=== PATIENT | female | born 1990 | race Caucasian/White ===

== ENCOUNTER → 2018-01-25 11:48 | Outpatient (CLI) | payer OTHER, SELFPAY ==
[2018-01-25 13:22] LABS: Follicle Stimulating Hormone 13.1 mIU/mL; Luteinizing Hormone 88.5 mIU/mL; Thyroid Stim Hormone (TSH) 0.56 uIU/mL (0.358-3.74)
[2018-01-28 13:08] LABS: HPV Reflexed? NOT INDICATED
== END ==
PROVIDERS: Visit Provider Obstetrics & Gynecology
DX: Z12.4 Encounter for screening for malignant neoplasm of cervix (principal); N92.6 Irregular menstruation, unspecified
CPT/HCPCS: 83001; 83002; 84443; 88175; G0145

== ENCOUNTER → 2019-02-02 10:00 | Outpatient (CLI) | payer OTHER, SELFPAY ==
[2017-09-19 18:30] VITALS: BMI 29.5
[2019-02-04 14:01] LABS: HPV Reflexed? NOT INDICATED
== END ==
PROVIDERS: Visit Provider Obstetrics & Gynecology
DX: Z12.4 Encounter for screening for malignant neoplasm of cervix (principal)
CPT/HCPCS: 88175; G0145

== ENCOUNTER → 2019-04-05 16:39 | Outpatient (CLI) | payer OTHER, SELFPAY ==
[2019-04-05 19:05] LABS: Chlamydia Trachomatis by PCR Negative (Negative); Neisserai gonorrhoeae by PCR Negative (Negative); Probe Check PASS; Sample Adequacy Control PASS; Specimen Processing Control PASS
== END ==
PROVIDERS: Visit Provider Obstetrics & Gynecology
DX: Z34.81 Encounter for supervision of other normal pregnancy, first trimester (principal)
CPT/HCPCS: 87491; 87591

== ENCOUNTER → 2019-04-28 10:37 | Outpatient (CLI) | payer OTHER, SELFPAY ==
[2017-09-19 18:30] VITALS: BMI 29.5
[2019-04-28 12:13] LABS: Color, Urine Yellow (Yellow); Glucose, Dipstick Normal (Normal); Ketone-Dipstick Negative (Negative); Leukocyte Esterase-Dipstick 500 /ul (Negative); Nitrite-Dipstick Negative (Negative); Occult Blood-Urine 25 /ul (Negative); Protein-Dipstick 15 mg/dl (Negative); Specific Gravity, Urine 1.015 (1.002-1.030); Urine Bilirubin Dipstick Negative (Negative); Urine Clarity Sl. Cloudy (Clear); Urine Urobilinogen Normal (Normal)
[2019-04-28 12:25] LABS: Absolute Neutrophil Count 6.9 X10^3/uL (2.0-7.7); Basophil# 0.01 X10^3/uL; Basophil% 0.1 % (0-1); Eosinophil# 0.03 X10^3/uL; Eosinophils% 0.3 % (0-5); Hematocrit 39.9 % (37-47); Hemoglobin 13.7 g/dL (12.0-15.0); Lymphocyte % 14.6 % (19-41); Mean Corp Hgb Conc 34.3 g/dL (32-36); Mean Corpuscular Hgb 31.6 pg (27.0-32.0); Mean Corpuscular Volume 92.1 fL (81-99); Mean Platelet Vol. 12.6 fl (6.2-12.0); Monocyte# 0.59 X10^3/uL; Monocyte% 6.6 % (0-10); NRBC Flagged by Analyzer 0 % (0-5); Neutrophil # 6.93 X10^3/uL (2.7-7.7); Neutrophil % 78.1 % (47-70); Platelet Count 149 K/mm3 (150-450); RBC Distribution Width CV 12.4 % (11.6-14.6); RBC Distribution Width SD 42.2 fl (35.1-43.9); Red Blood Count 4.33 M/mm3 (4.2-5.4); White Blood Count 8.9 K/mm3 (4.4-11.0)
[2019-04-28 12:31] LABS: Amphetamine Urine VISTA NEGATIVE (<1000 ng/mL); Barbiturate Urine VISTA NEGATIVE (< 200 ng/mL); Benzodiazepine Urine VISTA NEGATIVE (< 200 ng/mL); Cocaine Urine VISTA NEGATIVE (< 300 ng/mL); Ecstacy Urine VISTA NEGATIVE (< 500 ng/mL); Methadone Urine VISTA NEGATIVE (< 300 ng/mL); PCP Urine VISTA NEGATIVE (< 25 ng/mL); THC Urine VISTA NEGATIVE (< 50 ng/mL); Vista UDS pH Range 7
[2019-04-28 12:46] LABS: Thyroid Stim Hormone (TSH) 0.69 uIU/mL (0.358-3.74)
[2019-04-28 13:31] LABS: HIV - WCH Non-Reactive (Nonreactive); Hepatitis B Surface Antigen Non-Reactive (Nonreactive); Hepatitis C Antibody Non-Reactive (Nonreactive); Rubella IgG > 500.0 IU/mL
[2019-04-28 13:37] LABS: Prenatal RPR NONREACTIVE (NONREACTIVE)
== END ==
PROVIDERS: Visit Provider Obstetrics & Gynecology
DX: Z34.81 Encounter for supervision of other normal pregnancy, first trimester (principal)
CPT/HCPCS: 36415; 80307; 81002; 84443; 85025; 86703; 86762; 86803; 87340

== ENCOUNTER → 2019-08-04 08:36 | Outpatient (CLI) | payer OTHER, SELFPAY ==
[2019-08-04 10:54] LABS: Hematocrit 35.3 % (37-47); Hemoglobin 11.7 g/dL (12.0-15.0); Mean Corp Hgb Conc 33.1 g/dL (32-36); Mean Corpuscular Hgb 33.1 pg (27.0-32.0); Mean Corpuscular Volume 99.7 fL (81-99); Mean Platelet Vol. 11.7 fl (6.2-12.0); Platelet Count 136 K/mm3 (150-450); RBC Distribution Width CV 13.2 % (11.6-14.6); RBC Distribution Width SD 48.2 fl (35.1-43.9); Red Blood Count 3.54 M/mm3 (4.2-5.4); White Blood Count 10.3 K/mm3 (4.4-11.0)
[2019-08-04 11:06] LABS: Glucose Challenge Gest 1H 50g 139 mg/dL (70-140)
== END ==
PROVIDERS: Visit Provider Obstetrics & Gynecology
DX: Z34.82 Encounter for supervision of other normal pregnancy, second trimester (principal)
CPT/HCPCS: 36415; 82950; 85027

== ENCOUNTER 2019-09-08 10:00 | Outpatient (CLI) | payer OTHER, SELFPAY ==
[2017-09-19 18:30] VITALS: BMI 29.5
[2019-09-08 10:27] VITALS: BMI 33.0
--- NOTE | 2019-09-15 08:39 | OB.TRI.NOTE ---
History of Present Illness Date of Service: 09/08/19 Was patient seen by the physician?: No Reason For Visit: NST Date of Service: 09/08/19 Final RANDELL: 10/29/19 Gestational age: 32 Weeks and 5 Days History of Present Illness: 32-week intrauterine twin who presents for routine nonstress test. Allergies doxycycline Adverse Reaction (Verified 09/08/19 10:29) Nausea/Vom/Diarrhea NST - FHR Rate Baby A NST Reactive:: Yes FHR Category:: Category I - FHR Rate Baby B NST Reactive:: Yes FHR Category:: Category I Impression/Plan 32+ week intrauterine twin for routine scheduled nonstress test. Reactive nonstress noted x2. Continue present care.
== END 2019-09-08 10:45 | disposition home or self-care (01) ==
LOC: WPOUT 10:02 → WP 10:03
PROVIDERS: Referring Provider Obstetrics & Gynecology; Visit Provider Obstetrics & Gynecology
DX: O30.003 Twin pregnancy, unspecified number of placenta and unspecified number of amniotic sacs, third trimester (principal); Z3A.32 32 weeks gestation of pregnancy
CPT/HCPCS: 59025

== ENCOUNTER 2019-09-15 09:55 | Outpatient (CLI) | payer OTHER, SELFPAY ==
[2019-09-15 10:25] VITALS: BMI 33.0
--- NOTE | 2019-09-15 22:47 | OB.TRI.NOTE ---
History of Present Illness Date of Service: 09/15/19 Was patient seen by the physician?: No Reason For Visit: NST Date of Service: 09/15/19 Final RANDELL: 10/29/19 Final RANDELL Source: US <20 weeks Gestational age: 33 Weeks and 5 Days Allergies doxycycline Adverse Reaction (Verified 09/08/19 10:29) Nausea/Vom/Diarrhea Review of Systems Constitutional: Denies: Chills, Fever, Weight Change HEENT: Denies: Head Aches, Sinus Congestion, Sinus Drainage Cardiovascular: Denies: Chest Pain, Palpitations Respiratory: Denies: Cough, Shortness of breath at rest, Sputum production Gastrointestinal: Denies: Abdominal Pain, Nausea, Vomiting Genitourinary: Denies: Dysuria Musculoskeletal: Denies: Joint Pain, Joint Tenderness Skin: Denies: Rash, Wounds Neurological: Denies: Numbness, Tingling, Focal weakness Psychiatric: Denies: Anxiety, Depression, Homicidal Ideations, Suicidal Ideations Hematologic/ Lymphatic: Denies: Easy Bruising, Easy Bleeding Physical Exam General: Alert, Oriented x3, No apparent distress HEENT: Atraumatic, Normocephalic. Negative for: Thyromegaly, Lymphadenopathy Cardiovascular: Regular rate, Regular Rhythm Lungs: Clear to auscultation Abdomen: Bowel Sounds Present, Gravid Neurological: Deep Tendon Reflexes 2+/4 and Symmetrical, Neuro grossly intact AUDIO VISUAL SECRETARY: Normal external genitalia. Negative for: Vulvar lesions NST - FHR Rate Baby A Baseline: 130 Variability:: Moderate Accelerations:: 15 x 15 Decelerations:: None NST Reactive:: Yes FHR Category:: Category I Uterine Activity:: On NST from and one contraction seen with uterine irritability noted - FHR Rate Baby B Baseline: 140 Variability:: Moderate Accelerations:: None Decelerations:: None NST Reactive:: Non-Reactive FHR Category:: Category II Uterine Activity:: On NST from . One contraction noted with uterine irritability. Impression/Plan A: , twin gestation with GA 33w4d Baby A NST reactive with baseline of 130, moderate variability, + accels, - decels. Category I tracing Baby B NST non-reactive with baseline 140, moderate variability, -accels, -decels. Category II tracing P: L&D RN alerted senior mortgage underwriter of NST with baby B non-reactive. Spoke with attending Dr. Child who agrees to D/C patient from to come straight to office for BPP and follow up.
== END 2019-09-15 11:15 | disposition home or self-care (01) ==
LOC: WPOUT 09:59 → WP 10:00
PROVIDERS: Referring Provider Obstetrics & Gynecology; Visit Provider Obstetrics & Gynecology
DX: O30.003 Twin pregnancy, unspecified number of placenta and unspecified number of amniotic sacs, third trimester (principal); Z3A.33 33 weeks gestation of pregnancy
CPT/HCPCS: 59025; 99218; G0378

== ENCOUNTER 2019-09-23 12:22 | Outpatient (CLI) | payer OTHER, SELFPAY ==
[2019-09-23 12:48] VITALS: BMI 33.0
--- NOTE | 2019-10-07 06:45 | OB.TRI.NOTE ---
History of Present Illness Date of Service: 09/23/19 Was patient seen by the physician?: No Reason For Visit: SCHEDULED NST Date of Service: 09/23/19 Final RANDELL: 10/29/19 Final RANDELL Source: US <20 weeks Gestational age: 34 Weeks and 6 Days History of Present Illness: 34+ week intrauterine with twin gestation presents for routine nonstress testing. Allergies doxycycline Adverse Reaction (Verified 10/05/19 02:55) Nausea/Vom/Diarrhea - Pertinent Past Medical History Medical History: Past Medical History (Last Updated 10/05/19 @ 04:38 by Emmie Benjamin MD) Patient denies medical problems Surgical History: Past Surgical History (Last Updated 10/05/19 @ 04:39 by Emmie Benjamin MD) History of placement of ear tubes S/P tonsillectomy and adenoidectomy NST - FHR Rate Baby A NST Reactive:: Yes FHR Category:: Category I - FHR Rate Baby B NST Reactive:: Yes FHR Category:: Category I Impression/Plan 34+ week intrauterine with twin gestation with reactive nonstress test x2. Continue present care.
== END 2019-09-23 14:00 | disposition home or self-care (01) ==
LOC: WPOUT 12:24 → OBT 12:25
PROVIDERS: Family Provider Obstetrics & Gynecology; Visit Provider Obstetrics & Gynecology
DX: O30.003 Twin pregnancy, unspecified number of placenta and unspecified number of amniotic sacs, third trimester (principal); Z3A.34 34 weeks gestation of pregnancy
CPT/HCPCS: 59025

== ENCOUNTER 2019-09-29 14:27 | Outpatient (CLI) | payer OTHER, SELFPAY ==
[2019-09-29 14:55] VITALS: BMI 33.5
--- NOTE | 2019-09-29 14:58 | NURSING ---
pt is here for an NST she has no c/o
--- NOTE | 2019-10-07 06:54 | OB.TRI.NOTE ---
History of Present Illness Date of Service: 09/29/19 Was patient seen by the physician?: No Reason For Visit: NST Date of Service: 09/29/19 Final RANDELL: 10/29/19 Final RANDELL Source: US <20 weeks Gestational age: 35 Weeks and 5 Days History of Present Illness: 35+ week intrauterine presents for routine nonstress test for twin gestation. Allergies doxycycline Adverse Reaction (Verified 10/05/19 02:55) Nausea/Vom/Diarrhea - Pertinent Past Medical History Medical History: Past Medical History (Last Updated 10/05/19 @ 04:38 by Emmie Benjamin MD) Patient denies medical problems Surgical History: Past Surgical History (Last Updated 10/05/19 @ 04:39 by Emmie Benjamin MD) History of placement of ear tubes S/P tonsillectomy and adenoidectomy NST - FHR Rate Baby A NST Reactive:: Yes FHR Category:: Category I - FHR Rate Baby B NST Reactive:: Yes FHR Category:: Category I Impression/Plan 35+ week intrauterine with twin gestation with reactive nonstress test x2. Continue present care.
== END 2019-09-29 15:55 | disposition home or self-care (01) ==
LOC: WPOUT 14:48 → WP 14:50
PROVIDERS: Referring Provider Obstetrics & Gynecology; Visit Provider Obstetrics & Gynecology
DX: O30.003 Twin pregnancy, unspecified number of placenta and unspecified number of amniotic sacs, third trimester (principal); Z3A.35 35 weeks gestation of pregnancy
CPT/HCPCS: 59025

== ENCOUNTER 2019-10-03 16:09 | Outpatient (CLI) | payer OTHER, SELFPAY ==
[2019-10-03 16:19] VITALS: BMI 34.0
--- NOTE | 2019-10-07 06:56 | OB.TRI.NOTE ---
History of Present Illness Date of Service: 10/03/19 Was patient seen by the physician?: No Reason For Visit: NST Date of Service: 10/03/19 Final RANDELL: 10/29/19 Final RANDELL Source: US <20 weeks Gestational age: 36 Weeks and 2 Days History of Present Illness: 36+ week intrauterine with twin gestation presents for routine nonstress testing. Allergies doxycycline Adverse Reaction (Verified 10/05/19 02:55) Nausea/Vom/Diarrhea - Pertinent Past Medical History Medical History: Past Medical History (Last Updated 10/05/19 @ 04:38 by Emmie Benjamin MD) Patient denies medical problems Surgical History: Past Surgical History (Last Updated 10/05/19 @ 04:39 by Emmie Benjamin MD) History of placement of ear tubes S/P tonsillectomy and adenoidectomy NST - FHR Rate Baby A NST Reactive:: Yes FHR Category:: Category I - FHR Rate Baby B NST Reactive:: Yes FHR Category:: Category I Impression/Plan 36+ week intrauterine with twin gestation with reactive nonstress test x2. Continuing present care.
== END 2019-10-03 16:55 | disposition home or self-care (01) ==
LOC: WPOUT 16:10 → WP 16:10
PROVIDERS: Referring Provider Obstetrics & Gynecology; Visit Provider Obstetrics & Gynecology
DX: O30.003 Twin pregnancy, unspecified number of placenta and unspecified number of amniotic sacs, third trimester (principal); Z3A.36 36 weeks gestation of pregnancy
CPT/HCPCS: 59025; 59050; 99218; G0378

== ENCOUNTER 2019-10-05 03:00 | Inpatient (IN) | payer OTHER, SELFPAY ==
[2019-10-05] VITALS (25 sets, daily range): BP systolic 109–139; BP diastolic 63–89; PULSE 83–143; RESP 14–18; TEMP 35.7–37.2; O2SAT 97–100; BMI 33.9
[2019-10-05 02:59] LABS: ROM Internal Control Test YES-OK TO RESULT pt. (Internal QC); ROM Patient Test POSITIVE (Negative)
[2019-10-05] MEDS: Lactated Ringers 1,000 ML 999 ML IV (03:38)
[2019-10-05 03:57] LABS: Absolute Lymphocyte Count 1.45 X10^3/uL (0.83-4.51); Absolute Neutrophil Count 7.7 X10^3/uL (2.0-7.7); Basophil# 0.02 X10^3/uL; Basophil% 0.2 % (0-1); Eosinophil# 0.07 X10^3/uL; Eosinophils% 0.7 % (0-5); Hematocrit 37.2 % (37-47); Hemoglobin 12.3 g/dL (12.0-15.0); Lymphocyte # 1.45 X10^3/ul (4.0); Mean Corp Hgb Conc 33.1 g/dL (32-36); Mean Corpuscular Hgb 31.9 pg (27.0-32.0); Mean Corpuscular Volume 96.6 fL (81-99); Monocyte# 1.02 X10^3/uL; Monocyte% 9.9 % (0-10); NRBC Flagged by Analyzer 0 % (0-5); Neutrophil % 74.5 % (47-70); Platelet Count 134 K/mm3 (150-450); RBC Distribution Width CV 13.4 % (11.6-14.6); RBC Distribution Width SD 47.5 fl (35.1-43.9); Red Blood Count 3.85 M/mm3 (4.2-5.4); White Blood Count 10.3 K/mm3 (4.4-11.0)
[2019-10-05] MEDS: Sodium Citrate/Citric Acid 30 ML UDC PO (04:35)
--- NOTE | 2019-10-05 04:37 | PCM.HP.OB ---
- Problem List (1) 36 weeks gestation of Status: Acute (2) premature rupture of membranes Status: Acute Qualifiers: PROM onset of labor timing: onset of labor within 24 hours of rupture Qualified Code(s): O42.019 - premature rupture of membranes, onset of labor within 24 hours of rupture, unspecified trimester History Date of Admission: 10/05/19 Final RADNELL: 10/29/19 Final RANDELL Source: US <20 weeks Gestational age: 36 Weeks and 4 Days History of this : This is a 29 year-old, G [3], P [1011], at 36 4/7 weeks gestational age with dichorionic diamnionic twin gestation with c/o leaking of fluid, + contractions. Medical History: Medical History (Last Updated 10/05/19 @ 04:38 by Emmie Benjamin MD) Patient denies medical problems Z78.9 Surgical History: Surgical History (Last Updated 10/05/19 @ 04:39 by Emmie Benjamin MD) History of placement of ear tubes Z96.22 S/P tonsillectomy and adenoidectomy Z90.89 Allergies doxycycline Adverse Reaction (Verified 10/05/19 02:55) Nausea/Vom/Diarrhea Home Medications: Home Medications L.acidoph,Paracasei, B.lactis [Probiotic] 1 ea PO DAILY 09/08/19 Mkv030/Iron/l-Mefol/Omega3/Dha [ Plus-Dha Combo Pack] 1 tab PO DAILY 09/08/19 Valacyclovir HCl [Valtrex] 1,000 mg PO DAILY 09/08/19 Iron Chews 45 mg PO DAILY 10/05/19 Smoking Status: Light Smoker (<10/day) Alcohol: None Number of Fetus(es): 2 NST - FHR Rate Baby A Baseline: 135 Variability:: Moderate Accelerations:: 15 x 15 Decelerations:: Variable NST Reactive:: Yes FHR Category:: Category II - FHR Rate Baby B Baseline: 145 Variability:: Moderate Accelerations:: None Decelerations:: Variable NST Reactive:: Yes FHR Category:: Category II Uterine Activity:: 1-2/10 min History Past Pregnancies: Past Pregnancies Delivery Date Name GA/ Weeks Outcome Route Wt Sex Labor Length Anesthesia [facility] F 13 Epidural [facility] Danyell Renteria 08/2017 8 SAB SAB Home Labs: Mom's Problem List Problem Status Onset Code 36 weeks gestation of Acute Z3A.36 premature rupture of membranes Acute O42.919 Mom's Labs & Results 10/05/19 10/05/19 10/05/19 02:42 03:20 03:35 WBC 10.3 RBC 3.85 L Hgb 12.3 Hct 37.2 MCV 96.6 MCH 31.9 MCHC 33.1 RDW Std Deviation 47.5 H RDW Coeff of Shaneka 13.4 Plt Count 134 L MPV 12.0 Immature Gran % (Auto) 0.700 Neut % (Auto) 74.5 H Lymph % (Auto) 14.0 L Madison % (Auto) 9.9 Eos % (Auto) 0.7 Baso % (Auto) 0.2 Absolute Neuts (auto) 7.7 Absolute Lymphs (auto) 1.45 Nucleated RBC % 0 Vag Amniotic Fld Detect POSITIVE H Group B Strep DNA Pending Specimen Comment Pending Blood Type Antibody Screen 10/05/19 03:35 WBC RBC Hgb Hct MCV MCH MCHC RDW Std Deviation RDW Coeff of Shaneka Plt Count MPV Immature Gran % (Auto) Neut % (Auto) Lymph % (Auto) Madison % (Auto) Eos % (Auto) Baso % (Auto) Absolute Neuts (auto) Absolute Lymphs (auto) Nucleated RBC % Vag Amniotic Fld Detect Group B Strep DNA Specimen Comment Blood Type Pending Antibody Screen Pending Course Did the patient receive Yes care? Labs Blood Type: A RH: POSITIVE RPR/VDRL/Syphilis Nonreactive Rubella status Immune HbSAg Negative Date Done: 04/28/19 Chlamydia Negative Gonorrhea Negative HIV/AIDS Non-Reactive Group B Strep: Collected on Admission Current Obstetrical History Gestational Diabetes No Incompetent Cervix No Infertility No IUGR No Macrosomia No Hypertension/Pre-eclampsia No Placenta Previa/Abruption No PTL/PROM No Uterine anomaly Yes: tilted uterus Oligohydramnios No Polyhydramnios Yes: baby A Multiple gestation Yes: Reyna twins Past Medical History Asthma No Diabetes No Hypertension No Heart disease No Mitral valve prolapse No Neurologic/Seizure disorder/ No Migraines Kidney disease No Liver disease No Varicosities No Clotting disorders/Hx of DVT No Thyroid Dysfunction No Other medical diseases No Psychiatric disorders Yes: hx of anxiety and depression with no meds Major trauma No Abnormal PAP smear Yes: colposcopy in 2012 Sleep apnea No Mammogram in the last 2 years No Social History Marital Status: Alleged father Dexter Stern Hx Smoking Yes Smoking Status Light Smoker (<10/day) 09/19/19 - EFW A 2274g (36th%), EFW B 1990g(18th%) Expected Delivery Method: Scheduled Section Number of Visits: 112 Physical Exam Vitals: avss General: Alert, Oriented x3, Cooperative, No apparent distress HEENT: Atraumatic, Normocephalic Cardiovascular: Regular rate, Regular Rhythm, Normal S1, Normal S2 Lungs: Clear to auscultation, Normal air movement Abdomen: Soft, Non Tender, Non-Distended, Gravid Extremities:: No edema Neurological: Neuro grossly intact Presentation: - - Cephalic/Transverse on US Cervix Dilation (cm): 1 Station: -3 Effacement (%): 50 Assessment/Plan All Active Problems (Last Updated 10/05/19 @ 04:38 by Emmie Benjamin MD) 36 weeks gestation of (Acute) premature rupture of membranes (Acute) This is a 29 year-old, G [3], P [1011], at 36 4/7 weeks gestational age. -Proceed with C/S as planned -Consents signed and reviewed -LARC declined -Advised smoking cessation, Declines nicotine patch
[2019-10-05] MEDS: Cefazolin 2 GM in 0.9% Normal Saline 100 ML IV (04:38)
--- NOTE | 2019-10-05 05:42 | PLAC_PTH ---
PATIENT: JEAN-PIERRE CONN LOC: WP U#:[id number] AGE/SX: 29/F ROOM: WP005 RE10/05/[address]: Dr. Emmie Burnham MD : 1990 BED: 1 DIS: 10/08/2019 SPEC #: [id number] RECD: 10/05/19 07:36 STATUS: SENG REJeanette #: [id number] TIFFANY: 10/05/19 05:[address]: Emmie Abrams DEPT: SURGICAL PATHOLOGY RECD BY: Jason Diaz ENTERED: 10/05/19 10:44 SP TYPE: PLACENTA OTHR DR: Matilda Primary Care Phys Tissues: Placenta, NOS Procedures: Surgery Specimen Level V HEADER OPERATION: Labor and delivery PRE-OP DIAGNOSIS: section, twins TISSUE SUBMITTED: Placenta MICROSCOPIC DIAGNOSIS Dichorionic diamniotic twin placenta: Placenta A (426gm): Umbilical cord - trivascular Peripheral membranes - no evidence of inflammation. Placental disc - intravillous congestion and mild Lissett-Antonio change. Placenta A (280gm): Umbilical cord - trivascular with no evidence of inflammation. Peripheral membranes - no evidence of inflammation. Placental disc - minute choragioma and mild Lissett-Antonio change. AM:lisset 10/07/19 COMMENT Case has been reviewed in consultation with Dr. Camp who concurs with the above diagnosis. IDC:[email or web address] MICROSCOPIC DESCRIPTION Slides are reviewed. GROSS DESCRIPTION SPECIMEN: TWIN PLACENTA / CLINICAL INFORMATION: A. Weight: A - 2.53 kg; B - 1.98 kg B. Gestational Age: 36 weeks C. Sex: A - Male, B - Male The specimen consists of two placental discs, two umbilical cords connected by dividing membrane. PLACENTA A: Placenta with single clamp is designated placenta A. PLACENTAL WEIGHT (POST FIXATION): 426gm PLACENTAL DIMENSIONS: Placental disc A is complete without disruption and measures 15 x 13 x 3 cm PLACENTAL SHAPE: Usual ovoid PLACENTAL WEIGHT FOR GESTATIONAL AGE: Within 10-99th percentile. MEMBRANES - Present A. Insertion: Marginal B. Site of rupture from edge: At edge of placental disc C. Color of membrane: Berry-ortega D. Abnormalities: None UMBILICAL CORD - Present A. Color: Berry-ortega B. Insertion: Eccentric C. Length: 25 cm D. Diameter: 1.2 cm E. Number of vessels: Three F. Abnormalities: None PLACENTA B: Placental disc with two clamps in the umbilical cord is designated B PLACENTAL WEIGHT (POST FIXATION): 280gm PLACENTAL DIMENSIONS: The disc is disrupted and received in two fragments. Aggregate measurement is 16 x 12 x 3 cm PLACENTAL SHAPE: Usual ovoid PLACENTAL WEIGHT FOR GESTATIONAL AGE: Under 10th percentile. MEMBRANES - Present A. Insertion: Marginal B. Site of rupture from edge: At edge of placental disc C. Color of membrane: Berry-orteag D. Abnormalities: None UMBILICAL CORD - Present A. Color: Berry-ortega B. Insertion: Eccentric C. Length: 25 cm D. Diameter: 1 cm E. Number of vessels: Three F. Abnormalities: None PLACENTAL DISC - Present A. Color of surface: Berry-ortega B. surface abnormalities: None C. Maternal cotyledons: Intact with minimal tears D. Attached retro placental clot: No clot E. Cut surface: Dark red and spongy F. Lesions: None G. Separate clot: 11 x 8 x 2.5 cm SECTIONS SUBMITTED: 11 cassettes 1 - Dividing membranous septum 2 - Umbilical cord A 3 - Placental membranes A 4-6 - Placental disc A 7 - Umbilical cord B 8 - Membrane for B 9-11 - Placental disc B AM:rg 10/06/19 TC:5 CPT: 98343 x2
--- NOTE | 2019-10-05 05:50 | OP.PCM_ITS ---
Problem List (1) 36 weeks gestation of Status: Acute (2) premature rupture of membranes Status: Acute Qualifiers: PROM onset of labor timing: onset of labor within 24 hours of rupture Qualified Code(s): O42.019 - premature rupture of membranes, onset of labor within 24 hours of rupture, unspecified trimester Delivery Classification: WARD Final RANDELL: 10/29/19 Final RANDELL Source: US <20 weeks Gestational age: 36 Weeks and 4 Days [place] doctor who attended delivery (if requested by OB): Lynsey Gracia chopper gun operator: Anya Landrum Type of Anesthesia:: Spinal Date of Procedure: 10/05/19 Pre-Operative Diagnosis: 36 4/7wga, dichorionic diamnionic twin gestation, PPROM Post-Operative Diagnosis: 36 4/7wga, dichorionic diamnionic twin gestation, PPROM Indications: 29yo @ 36 4/7wga with dichorionic diamnionic twin gestation admitted with PPROM. presentations were cephalic-transverse thus she was advised to proceed with section as planned. Procedural r/b/i/a were reviewed. Consents signed. Patient and given opportunity to ask questions and questions answered to their satisfaction. Indications for : Multiple Gestation, - - Twin gestation, Cephalic- transverse presentation Description of Procedure: The patient was taken to the operating room and spinal analgesia was administered. She is placed in a dorsal supine position with left lateral tilt. The perineum and abdomen were prepped and draped in sterile fashion. And the spinal was found to be adequate. A Pfannenstiel incision was made using a scalpel and brought down to incise the subcutaneous tissue and rectus fascia at the midline. Subcutaneous tissue was bluntly dissected off the fascia laterally. The fascial incision was dissected laterally and cephalad using curved Wolff scissors. The superior leaflet of the rectus fascia was grasped using Nicole clamps and bluntly dissected and sharply dissected from the underlying rectus muscle. In a similar fashion the inferior rectus fascia was dissected from the underlying muscle. The rectus muscles were bluntly at the midline. The peritoneum was identified and entered [sharply]. The bladder blade was placed into the abdomen and the vesicouterine peritoneal fold identified. The fold was incised and a bladder flap created. Bladder blade was then repositioned to the abdomen. A low transverse hysterotomy was made using the [Metzenbaum scissors] to level of the membranes. The hysterotomy was extended bluntly cephalad and caudad. The membranes were then ruptured revealing clear fluid. The head of fetus A was elevated and brought to the level of the hysterotomy and the infant delivered revealing vigorous [male] infant. Infant mouth and nares were suctioned. The cord was doubly clamped and cut after 30 seconds. The infant was passed to awaiting [nursery personnel]. Fetus B remained in transverse presentation on exploration, thus I proceeded with breech extraction. The left lower extremity was grasped and delivered through the hysterectomy, amniotomy was performed with clear fluid. The right lower extremity was delivered, followed by delivery body to the shoulders and spontaneous delivery of the head. B's mouth and nares were also suctioned. The cord was doubly clamped and cut and he was passed to the Pediatric Hospitalist and nursery personnel. The placenta was [expressed] from the uterus and appeared intact on inspection. The uterus was cleared of debris. The hysterotomy was then repaired using 0 Vicryl running lock suture. A second imbricating layer was also placed for additional hemostasis. The bladder blade was removed. The anterior cul-de-sac was cleared of debris. The peritoneum and rectus muscles were reapproximated using 2-0 Vicryl running suture. The rectus fascia was closed using 0 Stratafix running suture. The subcutaneous tissue was reapproximated using 2-0 Vicryl. The skin was closed using 4-0 Monocryl subcuticularly by the DIGITAL BUSINESS ANALYST under my supervision. A Mepilex occlusive dressing was placed over the incision. The fundus was firm. The patient was then transferred to the recovery room without complication. Sponge, instrument, and needle counts were correct ?2. Amniotic Membrane Rupture Type: Artificial Amniotic Fluid Description: Clear Placenta Disposition: Sent to Pathology Specimen(s) sent to pathology: 1 - placenta Drain: [place]ado to straight drain Fluids Replaced: 1500 ml Cord Entanglement: None Nuchal Cord Compression: Without compression Cord Vessel Description: 3 Vessels Esitmated Blood Loss (ml): 1200 ml Gender: Male (1 minute): 9 (5 minute): 9 Delayed cord clamping: Yes Antibiotic Given: Ancef 2 grams IV x1, Zithromax 500 mg/5 mL X1 Pt instructed on risks of surgery: Bleeding, Anesthesia Risks, Infection, Injury to surrounding structure(s) including bowel and bladder Complications: None - Admit VTE Documentation VTE Present on Admission: No VTE Mechan Device Prophylaxis: SCD's VTE Pharm Prophylaxis ordered?: Yes Baby B - Information Amniotic Membrane Rupture Type: Artificial Presentation: Footling Breech - Operative Information Cord Entanglement: None Cord Vessel Description: 3 Vessels Infant B gender: Male (1 minute): 9 (5 minute): 9
[2019-10-05] MEDS: Oxytocin 30 units/NS 500 ml 30 UNITS/500 ML IV.SOLN 167 UNITS IV (06:00)
[2019-10-05] MEDS: Lactated Ringers 1,000 ML 100 ML IV ×2 (09:14→19:38)
[2019-10-05] MEDS: Ketorolac 30 MG/ML Syringe IV ×2 (13:47→19:38)
--- NOTE | 2019-10-05 20:10 | NURSING ---
pt laying in bed tearful, reports severe pain to right upper shoulder, worse with deep breaths. toradol and mylicon were given. fundus firm 1 below u, lochia scant. lungs clear per auscultation. Tamica HIDALGO on unit and made aware. called for additional pain medication orders, will continue to monitor
[2019-10-05] MEDS: Enoxaparin 40 MG/0.4 ML Syringe SC (20:33)
[2019-10-05] MEDS: Acetaminophen 500 MG Tablet 1000 MG PO (23:43)
[2019-10-06 00:50] VITALS: PULSE 88; RESP 16; O2SAT 100
[2019-10-06] MEDS: Ketorolac 30 MG/ML Syringe IV ×5 (00:55→23:43)
[2019-10-06 02:47] VITALS: PULSE 77; RESP 16; O2SAT 97
[2019-10-06 04:13] VITALS: BP 114/72; PULSE 90; RESP 16; TEMP 37.1; O2SAT 98
[2019-10-06 05:03] LABS: Hematocrit 22.9 % (37-47); Hemoglobin 7.6 g/dL (12.0-15.0); Mean Corp Hgb Conc 33.2 g/dL (32-36); Mean Corpuscular Hgb 33.2 pg (27.0-32.0); Mean Platelet Vol. 11.2 fl (6.2-12.0); Platelet Count 114 K/mm3 (150-450); RBC Distribution Width CV 13.9 % (11.6-14.6); Red Blood Count 2.29 M/mm3 (4.2-5.4); White Blood Count 9.8 K/mm3 (4.4-11.0)
[2019-10-06] MEDS: Senna/Docusate Sodium 1 Tablet PO (07:59)
[2019-10-06] MEDS: oxyCODONE 5 MG Tablet PO ×3 (07:59→19:16)
[2019-10-06] MEDS: Prenatal Vits Tablet 1 TABLET PO (07:59)
[2019-10-06 08:05] VITALS: BP 110/71; PULSE 84; RESP 18; TEMP 36.8
--- NOTE | 2019-10-06 08:30 | PN.OBGYN_ITS ---
Patient Problems: Active and Suspected Problems (Last Updated 10/05/19 @ 04:38 by Emmie Burnham MD) 36 weeks gestation of (Acute) premature rupture of membranes (Acute) Subjective: Pain moderately well controlled, c/o supraclavicular gas pain; minimal diet to this point but tolerating well and will AAT; passing flatus; has been up and walking; denies SOB, lightheadedness or dizziness; twin male infants bottle feeding well; spouse bedside and supportive Objective: AVSS H/h 7.6/22.9, pt is asymptomatic Breasts soft Fundus firm, midline, u/1, lochia small LTCS dressing CDI - Physical Exam Vitals/I&O's: Vital Signs Temp Pulse Resp BP Pulse Ox 98.3 F 84 18 110/71 98 10/06/19 08:05 10/06/19 08:05 10/06/19 08:05 10/06/19 08:05 10/06/19 04:13 Oxygen Delivery Method Room Air Weight: 210 lb 2 oz Body Mass Index (BMI) 33.9 Intake and Output for Last 24 Hours 10/04/19 10/05/19 10/06/19 23:59 23:59 23:59 Intake Total 3697.35 / 3697.35 861.67 / 861.67 Output Total 1650 / 1650 800 / 800 Balance 2047.35 / 2047.35 61.67 / 61.67 General: Alert, Oriented x3, Cooperative, No apparent distress HEENT: PERRLA, EOMI Oral: Moist Mucosa Neck: Supple Lungs: Clear to auscultation, Normal air movement Cardiovascular: Regular rate, Regular Rhythm Abdomen: Bowel Sounds Present, Soft, Non Tender, Non-Distended, Passing Flatus Extremities: No cyanosis, Capillary Refill Less than 3 Seconds, No Calf Tenderness, Edema - Mild, non pitting, bilateral pedal, Peripheral Pulses Normal Skin: No rashes Musculoskeletal: No Tenderness to Palpation of Joints or Extremities Neurological: Cranial nerves II-XII grossly intact, Deep Tendon Reflexes 2+/4 and Symmetrical, Neuro grossly intact Psych/Mental Status: Normal Affect, Appropriate, Alert and oriented to time, place, person, mood and affect Laboratory Results 10/06/19 04:53: WBC 9.8, RBC 2.29 L, Hgb 7.6 L, Hct 22.9 L, MCV 100.0 H, MCH 33.2 H, MCHC 33.2, RDW Std Deviation 50.0 H, RDW Coeff of Shaneka 13.9, Plt Count 114 L, MPV 11.2 Current Medications Acetaminophen (Tylenol) 1,000 mg PO Q8H PRN PRN Reason: Pain Score 1-3/10 Last Admin: 10/05/19 23:43 Dose: 1,000 mg Documented by: Bisacodyl (Dulcolax) 10 mg RECTAL UD PRN PRN Reason: If no BM Enoxaparin Sodium (Lovenox) 40 mg SC DAILY [facility] Last Admin: 10/05/19 20:33 Dose: 40 mg Documented by: Hydrocortisone (Hytone) 1 applic TOPICAL TID PRN PRN; Protocol PRN Reason: Discomfort Lactated Ringer's () 1,000 mls @ 100 mls/hr IV .Q10H [facility] Last Infusion: 10/06/19 04:15 Dose: Infused Documented by: Naloxone HCl 4 mg/ Dextrose 504 mls @ 0 mls/hr IV .Q0M PRN; Protocol PRN Reason: Respiratory depression Ibuprofen (Motrin) 600 mg PO Q6H PRN PRN PRN Reason: Pain Score 1-3/10 Ketorolac Tromethamine (Toradol) 30 mg IV Q6H [facility] Stop: 10/07/19 04:31 Last Admin: 10/06/19 06:37 Dose: 30 mg Documented by: Lactobacillus Acidophilus (Acidophilus) 1 tablet PO DAILY [facility] Last Admin: 10/05/19 17:16 Dose: Not Given Documented by: Methylergonovine Maleate (Methergine) 0.2 mg IM X1 PRN PRN Reason: Uterine Atony Naloxone HCl (Narcan) 0.02 mg IV Q1M PRN PRN Reason: RR <10 and pt unresponsive Ondansetron HCl (Zofran) 4 mg IV Q4H PRN PRN PRN Reason: Nausea Oxycodone HCl (Oxyir) 5 - 10 mg PO Q4H PRN PRN PRN Reason: Pain Score 4-10/10 Last Admin: 10/06/19 07:59 Dose: 10 mg Documented by: Multivit/Folic Acid/Iron (Prenatabs Fa) 1 tablet PO DAILY@1200 [facility] Last Admin: 10/06/19 07:59 Dose: 1 tablet Documented by: Prochlorperazine Edisylate (Compazine Iv) 10 mg IV Q6H PRN PRN PRN Reason: NAUSEA Senna/Docusate Sodium (Senokot-S, Corrina-Colace) 0 tablet PO DAILY PRN PRN Reason: Constipation Last Admin: 10/06/19 07:59 Dose: 2 tablet Documented by: Simethicone (Mylicon) 80 mg PO PCHS PRN PRN Reason: Indigestion/stomach pain Last Admin: 10/05/19 19:39 Dose: 80 mg Documented by: Sodium Chloride () 5 - 15 ml IV UD PRN PRN Reason: SALINE FLUSH Medical Necessity - Tobacco Use Smoking Status: Light Smoker (<10/day) Assessment/Plan All Active Problems (Last Updated 10/05/19 @ 04:38 by Emmie Benjamin MD) 36 weeks gestation of (Acute) premature rupture of membranes (Acute) Assessment: 29yo G3 now P1213 delivered via primary c/section (twins) at 36w4d gestation by L=10w3d US Postop/ day #1, normal involution, stable post op Anemia Plan: Discharge teaching started Dr. Benjamin notified of pts h/h Continiue routine care, encourage ambulation
[2019-10-06] MEDS: Enoxaparin 40 MG/0.4 ML Syringe SC (10:04)
[2019-10-06] MEDS: 0.9% Saline Lock 10 ML Syringe IV ×3 (12:22→23:43)
[2019-10-06 14:26] VITALS: BP 105/55; PULSE 74; RESP 16; TEMP 36.6
[2019-10-06 21:03] VITALS: BP 125/71; PULSE 101; RESP 16; TEMP 36.6; O2SAT 99
[2019-10-06] MEDS: Acetaminophen 500 MG Tablet 1000 MG PO (21:14)
[2019-10-07] MEDS: 0.9% Saline Lock 10 ML Syringe IV ×4 (00:46→14:00)
[2019-10-07] MEDS: Ondansetron 4 MG/2 ML Vial IV ×2 (00:46→14:00)
[2019-10-07 00:52] VITALS: BP 117/75; PULSE 84; RESP 16; TEMP 37.2; O2SAT 99
[2019-10-07] MEDS: oxyCODONE 5 MG Tablet PO ×5 (01:19→22:08)
--- NOTE | 2019-10-07 01:26 | NURSING ---
pt reporting feeling light headed and nauseous after changing position and ambulating to restroom. vital signs stable. fundus firm., lochia scant. nausea resolved after zofran given. will update provider
[2019-10-07 02:05] LABS: Absolute Neutrophil Count 5.4 X10^3/uL (2.0-7.7); Basophil# 0.02 X10^3/uL; Basophil% 0.2 % (0-1); Eosinophil# 0.11 X10^3/uL; Eosinophils% 1.4 % (0-5); Hematocrit 23.9 % (37-47); Hemoglobin 7.7 g/dL (12.0-15.0); Lymphocyte % 21.2 % (19-41); Mean Corp Hgb Conc 32.2 g/dL (32-36); Mean Corpuscular Hgb 32.9 pg (27.0-32.0); Mean Corpuscular Volume 102.1 fL (81-99); Mean Platelet Vol. 11.3 fl (6.2-12.0); Monocyte# 0.71 X10^3/uL; Monocyte% 8.9 % (0-10); NRBC Flagged by Analyzer 0 % (0-5); Neutrophil # 5.43 X10^3/uL (2.7-7.7); Neutrophil % 67.7 % (47-70); Platelet Count 117 K/mm3 (150-450); RBC Distribution Width CV 13.6 % (11.6-14.6); RBC Distribution Width SD 50.4 fl (35.1-43.9); Red Blood Count 2.34 M/mm3 (4.2-5.4)
[2019-10-07] MEDS: Lactated Ringers 1,000 ML 999 ML IV (02:30)
[2019-10-07] MEDS: Lactated Ringers 1,000 ML 125 ML IV (03:01)
[2019-10-07] MEDS: Ketorolac 30 MG/ML Syringe IV (05:27)
--- NOTE | 2019-10-07 06:35 | PCM.PN.OB ---
Patient Problems: Active and Suspected Problems (Last Updated 10/05/19 @ 04:38 by Emmie Benjamin MD) 36 weeks gestation of (Acute) premature rupture of membranes (Acute) Subjective: Patient without complaints. Tolerating diet well. Positive flatus. Had a spell where she got dizzy and a bit nauseated in the middle of the night just after voiding. She was given some IV fluids and now feels better. Reports minimal vaginal bleeding. Able to ambulate in the regan yesterday without problems. Plans to go home tomorrow with her twin boys. - Physical Exam Vitals/I&O's: Vital Signs Temp Pulse Resp BP Pulse Ox 98.9 F 84 16 117/75 99 10/07/19 00:52 10/07/19 00:52 10/07/19 00:52 10/07/19 00:52 10/07/19 00:52 Oxygen Delivery Method Room Air Weight: 210 lb 2 oz Body Mass Index (BMI) 33.9 Intake and Output for Last 24 Hours 10/05/19 10/06/19 10/07/19 23:59 23:59 23:59 Intake Total 3697.35 / 3697.35 861.67 / 861.67 500 / 500 Output Total 1650 / 1650 800 / 800 475 / 475 Balance 2047.35 / 2047.35 61.67 / 61.67 Comment: Wound CDI. Good urine output. Hemoglobin stable. Laboratory Results 10/07/19 01:50: WBC 8.0, RBC 2.34 L, Hgb 7.7 L, Hct 23.9 L, MCV 102.1 H, MCH 32.9 H, MCHC 32.2, RDW Std Deviation 50.4 H, RDW Coeff of [place]ka 13.6, Plt Count 117 L, MPV 11.3, Immature Gran % (Auto) 0.600, Neut % (Auto) 67.7, Lymph % (Auto) 21.2, [place] % (Auto) 8.9, Eos % (Auto) 1.4, Baso % (Auto) 0.2, Absolute Neuts (auto) 5.4, Absolute Lymphs (auto) 1.70, Nucleated RBC % 0 Current Medications Acetaminophen (Tylenol) 1,000 mg PO Q8H PRN PRN Reason: Pain Score 1-3/10 Last Admin: 10/06/19 21:14 Dose: 1,000 mg Documented by: Bisacodyl (Dulcolax) 10 mg RECTAL UD PRN PRN Reason: If no BM Enoxaparin Sodium (Lovenox) 40 mg SC DAILY [facility] Last Admin: 10/06/19 10:04 Dose: 40 mg Documented by: Hydrocortisone (Hytone) 1 applic TOPICAL TID PRN PRN; Protocol PRN Reason: Discomfort Naloxone HCl 4 mg/ Dextrose 504 mls @ 0 mls/hr IV .Q0M PRN; Protocol PRN Reason: Respiratory depression Lactated Ringer's () 500 mls @ 125 mls/hr IV .Q4H ONE Stop: 10/07/19 06:49 Last Admin: 10/07/19 03:01 Dose: 125 mls/hr Documented by: Ibuprofen (Motrin) 600 mg PO Q6H PRN PRN PRN Reason: Pain Score 1-3/10 Lactobacillus Acidophilus (Acidophilus) 1 tablet PO DAILY [facility] Last Admin: 10/06/19 10:04 Dose: 1 tablet Documented by: Methylergonovine Maleate (Methergine) 0.2 mg IM X1 PRN PRN Reason: Uterine Atony Naloxone HCl (Narcan) 0.02 mg IV Q1M PRN PRN Reason: RR <10 and pt unresponsive Ondansetron HCl (Zofran) 4 mg IV Q4H PRN PRN PRN Reason: Nausea Last Admin: 10/07/19 00:46 Dose: 4 mg Documented by: Oxycodone HCl (Oxyir) 5 - 10 mg PO Q4H PRN PRN PRN Reason: Pain Score 4-10/10 Last Admin: 10/07/19 05:33 Dose: 5 mg Documented by: Multivit/Folic Acid/Iron (Prenatabs Fa) 1 tablet PO DAILY@1200 [facility] Last Admin: 10/06/19 07:59 Dose: 1 tablet Documented by: Prochlorperazine Edisylate (Compazine Iv) 10 mg IV Q6H PRN PRN PRN Reason: NAUSEA Senna/Docusate Sodium (Senokot-S, Corrina-Colace) 0 tablet PO DAILY PRN PRN Reason: Constipation Last Admin: 10/06/19 07:59 Dose: 2 tablet Documented by: Simethicone (Mylicon) 80 mg PO PCHS PRN PRN Reason: Indigestion/stomach pain Last Admin: 10/06/19 21:15 Dose: 80 mg Documented by: Sodium Chloride () 5 - 15 ml IV UD PRN PRN Reason: SALINE FLUSH Last Admin: 10/07/19 02:28 Dose: 10 ml Documented by: Medical Necessity - Tobacco Use Smoking Status: Light Smoker (<10/day) Assessment/Plan All Active Problems (Last Updated 10/05/19 @ 04:38 by Emmie Benjamin MD) 36 weeks gestation of (Acute) premature rupture of membranes (Acute) Doing well postoperative day #3 status post section for twin gestation and rupture of membranes at 36 weeks gestation. Vasovagal episode overnight now resolved. Continuing present care and anticipate release tomorrow. Discussed iron therapy when she gets home and staying well-hydrated.
[2019-10-07] MEDS: Acetaminophen 500 MG Tablet 1000 MG PO ×2 (08:19→21:07)
[2019-10-07] MEDS: Senna/Docusate Sodium 1 Tablet PO (08:19)
[2019-10-07 08:30] VITALS: BP 126/79; PULSE 70; RESP 18; TEMP 37.1; O2SAT 99
--- NOTE | 2019-10-07 08:31 | PN.OBGYN_ITS ---
Patient Problems: Active and Suspected Problems (Last Updated 10/05/19 @ 04:38 by Emmie Burnham MD) 36 weeks gestation of (Acute) premature rupture of membranes (Acute) Subjective: Reports dizziness overnight while walking about with heart racing and nausea. Denies palpitations this morning. Denies heavy lochia. Reports Dr. Recinos had seen her this morning and advised her she had a vasovagal episode and recommended iron. Dorothy is sore today, passing flatus. No difficulty voiding. Objective: AVSS - Physical Exam Vitals/I&O's: Vital Signs Temp Pulse Resp BP Pulse Ox 98.9 F 84 16 117/75 99 10/07/19 00:52 10/07/19 00:52 10/07/19 00:52 10/07/19 00:52 10/07/19 00:52 Oxygen Delivery Method Room Air Weight: 95.311 kg Body Mass Index (BMI) 33.9 Intake and Output for Last 24 Hours 10/05/19 10/06/19 10/07/19 23:59 23:59 23:59 Intake Total 3697.35 / 3697.35 861.67 / 861.67 960.42 / 960.42 Output Total 1650 / 1650 800 / 800 475 / 475 Balance 2047.35 / 2047.35 61.67 / 61.67 485.42 / 485.42 General: Alert, Oriented x3, Cooperative, No apparent distress HEENT: Atraumatic, Normocephalic Lungs: Clear to auscultation, Normal air movement Cardiovascular: Regular rate, Regular Rhythm, Normal S1, Normal S2 Abdomen: Soft, Non Tender, - - Fundus firm and nontender, dressing d/c/i Extremities: No Calf Tenderness, - - trace LE edema Neurological: Neuro grossly intact Psych/Mental Status: Normal Affect, Appropriate, Alert and oriented to time, place, person, mood and affect Laboratory Results 10/07/19 01:50: WBC 8.0, RBC 2.34 L, Hgb 7.7 L, Hct 23.9 L, MCV 102.1 H, MCH 32.9 H, MCHC 32.2, RDW Std Deviation 50.4 H, RDW Coeff of [place] 13.6, Plt Count 117 L, MPV 11.3, Immature Gran % (Auto) 0.600, Neut % (Auto) 67.7, Lymph % (Auto) 21.2, [place] % (Auto) 8.9, Eos % (Auto) 1.4, Baso % (Auto) 0.2, Absolute Neuts (auto) 5.4, Absolute Lymphs (auto) 1.70, Nucleated RBC % 0 Current Medications Acetaminophen (Tylenol) 1,000 mg PO Q8H PRN PRN Reason: Pain Score 1-3/10 Last Admin: 10/07/19 08:19 Dose: 1,000 mg Documented by: Bisacodyl (Dulcolax) 10 mg RECTAL UD PRN PRN Reason: If no BM Enoxaparin Sodium (Lovenox) 40 mg SC DAILY [facility] Last Admin: 10/06/19 10:04 Dose: 40 mg Documented by: Hydrocortisone (Hytone) 1 applic TOPICAL TID PRN PRN; Protocol PRN Reason: Discomfort Naloxone HCl 4 mg/ Dextrose 504 mls @ 0 mls/hr IV .Q0M PRN; Protocol PRN Reason: Respiratory depression Ibuprofen (Motrin) 600 mg PO Q6H PRN PRN PRN Reason: Pain Score 1-3/10 Lactobacillus Acidophilus (Acidophilus) 1 tablet PO DAILY [facility] Last Admin: 10/06/19 10:04 Dose: 1 tablet Documented by: Methylergonovine Maleate (Methergine) 0.2 mg IM X1 PRN PRN Reason: Uterine Atony Naloxone HCl (Narcan) 0.02 mg IV Q1M PRN PRN Reason: RR <10 and pt unresponsive Ondansetron HCl (Zofran) 4 mg IV Q4H PRN PRN PRN Reason: Nausea Last Admin: 10/07/19 00:46 Dose: 4 mg Documented by: Oxycodone HCl (Oxyir) 5 - 10 mg PO Q4H PRN PRN PRN Reason: Pain Score 4-10/10 Last Admin: 10/07/19 05:33 Dose: 5 mg Documented by: Multivit/Folic Acid/Iron (Prenatabs Fa) 1 tablet PO DAILY@1200 [facility] Last Admin: 10/06/19 07:59 Dose: 1 tablet Documented by: Prochlorperazine Edisylate (Compazine Iv) 10 mg IV Q6H PRN PRN PRN Reason: NAUSEA Senna/Docusate Sodium (Senokot-S, Corrina-Colace) 0 tablet PO DAILY PRN PRN Reason: Constipation Last Admin: 10/07/19 08:19 Dose: 2 tablet Documented by: Simethicone (Mylicon) 80 mg PO PCHS PRN PRN Reason: Indigestion/stomach pain Last Admin: 10/07/19 08:19 Dose: 80 mg Documented by: Sodium Chloride () 5 - 15 ml IV UD PRN PRN Reason: SALINE FLUSH Last Admin: 10/07/19 06:42 Dose: 10 ml Documented by: Medical Necessity - Tobacco Use Smoking Status: Light Smoker (<10/day) Assessment/Plan All Active Problems (Last Updated 10/05/19 @ 04:38 by Emmie Benjamin MD) 36 weeks gestation of (Acute) premature rupture of membranes (Acute) This is a 29 year-old, G [3], P [1012] POD#2 s/p PLTCS with anemia. -Vasovagal episode. Acute postop anemia - discussed with patient transfusion 1 u prbc given drop in h/h and near syncope. r/b/i reviewed. Pt declines at this time. -PO iron -Routine postop care
[2019-10-07] MEDS: Enoxaparin 40 MG/0.4 ML Syringe SC (10:47)
[2019-10-07] MEDS: Ferrous Sulfate 325 MG Tablet PO ×2 (13:59→18:54)
[2019-10-07] MEDS: Prenatal Vits Tablet 1 TABLET PO (13:59)
[2019-10-07 14:14] VITALS: BP 133/73; PULSE 78; RESP 18; TEMP 36.6; O2SAT 100
[2019-10-07] MEDS: Ibuprofen 600 MG Tablet PO (16:56)
--- NOTE | 2019-10-07 17:58 | CM.ED ---
Social Work Assessment Labor and Delivery Unit Date of Referral: 10/05/19 Referred By: Nursing Date of Intervention: 10/07/18 Time of Intervention: 17:58pm Reason for Referral: History of depression/anxiety History obtained from: Mother of baby (MOB), Chart, Nursing staff. Household composition: This is second and third child for MOB. MOB and Father of baby (FOB) also have a 6 year old daughter, Kristi at home. Baby A: Lashawn Stern and Baby B: Lesly Stern plan to return to home with parents. Patient's parent/guardian status: MOB and FOB have been together for 7 years. MOB denies any concerns of abuse/neglect and to feel safe at home. MOB is own person and has custody of all children. Medical History: MOB with a miscarriage in 2016. MOB with adequate care. Baby A, Apgars of 9 and 9 at 1min and 5min. Baby B, Apgars of 9 and 9 at 1min and 5min. Educational Status: MOB with a 2 year associate degree and works full-time from home as a [employer]. MOB stating to have time off to adjust and when MOB feels ready to return. FOB works full-time at [employer] 3rd shift and has 3 weeks off to assist in transitioning. Financial Status: MOB stating to believe that MOB does not qualify for [facility] and to have support with family purchasing formula and supplies. MOB stating to have all needed supplies for and to be able to afford care but that money can be tight. Infant Supplies: MOB stating to have all needed supplies, crib, car seat, infant clothing, formula, bottles etc. MOB planning to bottle feed. Childcare/Caregiver(s): MOB plans to be primary acute care certified nursing assistant with assist from family members. MOB stating that MOB's [id number] has even offered to stay over night when FOB returns to work to assist with baby A and baby B. Transportation: MOB denies any transportation concerns. Programs/Agencies Involved: MOB denies any active community resources/programs. Children Services/Legal Issues: MOB denies any history of children services. Mental Health History: Patient stating to have a history of anxiety and depression. MOB stating to have tried medication in the past but that it did not help. MOB stating to have decided to follow a Vegan diet over the past year and that this helped with mood and affect. MOB stating to have been the happiest following a Vegan diet. MOB stating to have a history of having suicidal thoughts once a few years ago. MOB denies acting on any suicidal thoughts or any history of inpatient psychiatric placement. MOB stating to be able to manage emotions and mental health through having space, listening to music, sleeping some, and talking with spouse. MOB denies any active counseling or history of. Broached topic of depression, signs and symptoms. MOB educated on things to be aware of in regards to PPD. MOB asking appropriate questions and demonstrating good insight into emotional regulation. Encourage MOB to take time to have space even if that means for only 5mins to allow MOB to be able to care for self and therefore MOB's children. Substance Use History: MOB stating to smoke 1-2 cigarettes here and there. MOB stating to have no desire for tobacco at this time and hoping to be able to stop the habit. Broached topic of coping skills for MOB and how tobacco could be a negative coping skill. Encouraged MOB to focus on positive coping skilled that MOB mentioned above. MOB stating that if MOB would return to smoking tobacco that MOB does not smoke inside the house. MOB stating that FOB chews tobacco and does not smoke or use any other substances. MOB stating to have used THC in my 20's and denies any current use. MOB denies any heroine, cocaine, prescription drug, meth, or alcohol abuse. Maternal and Infant Drug Screens: MOB with negative tox screen on 04/28/19. No tox screen obtained on admission or for baby A and baby B. PHQ9: MOB stating to be happy and to feel a connection with baby A and baby B. Family/Social Stressors: MOB states to be nervous about transition with twins and a 6 year old at home but to be hopeful that the transition will go well. MOB stating that Kristi is in Kindergarten 5 days a week and this is a positive thing that will assist in the transition. Support Systems: MOB stating that family is supportive and plans to assist at time of discharge. MOB stating that FOB has good insight into MOB's emotions and is a positive emotional support for MOB. Depression and Anxiety/Shaken Baby/Safe Sleeping: Educated MOB on depression and anxiety, shaken baby, safe sleeping. Provided MOB with information on PPD, shaken baby, safe sleeping, [facility]. ASSESSMENT: Met with MOB and baby A and baby B in room. MOB resting in bed. Baby A and baby B resting in bassinet. MOB smiling often towards infants and presenting with a positive and engaged affect. MOB open about mental health history and showing motivation to maintain mental health. Encouraged MOB to consider counseling if MOB finds that MOB needs someone to talk with outside of the family unit. Encouraged MOB to speak with doctors if MOB starts to experiences signs/symptoms of depression or has any suicidal thoughts. MOB agreeable to plan and verbalizing often that FOB is a positive support and will assist with the transition. Encouraged MOB to continue taking care of self to be able to care for children. Acknowledging with MOB that the next few weeks will have positive stress. MOB aware of positive stressors and demonstrating good coping skills and problem solving. PLAN: Infants to discharge to home with MOB, FOB and older sister, Kristi. No other services requested or indicated. Anali Rene MSW, DAVID
[2019-10-07 20:40] VITALS: BP 112/71; PULSE 68; RESP 18; TEMP 37.1; O2SAT 97
[2019-10-08] MEDS: Ibuprofen 600 MG Tablet PO ×3 (00:35→16:10)
[2019-10-08] MEDS: 0.9% Saline Lock 10 ML Syringe IV (02:20)
[2019-10-08 02:24] VITALS: BP 124/76; PULSE 88; RESP 16; TEMP 36.8
[2019-10-08] MEDS: oxyCODONE 5 MG Tablet PO ×2 (03:48→10:26)
[2019-10-08 07:57] VITALS: BP 141/84; PULSE 78; RESP 16; TEMP 37; O2SAT 99
[2019-10-08 08:12] VITALS: BP 141/88; PULSE 84
[2019-10-08] MEDS: Senna/Docusate Sodium 1 Tablet PO (08:58)
[2019-10-08] MEDS: Enoxaparin 40 MG/0.4 ML Syringe SC (10:15)
[2019-10-08] MEDS: Acetaminophen 500 MG Tablet 1000 MG PO (11:58)
[2019-10-08 13:05] VITALS: BP 134/87; PULSE 68; RESP 16; TEMP 36.9
[2019-10-08 13:42] LABS: Hematocrit 25.6 % (37-47); Hemoglobin 8.3 g/dL (12.0-15.0); Mean Corp Hgb Conc 32.4 g/dL (32-36); Mean Corpuscular Hgb 32.7 pg (27.0-32.0); Mean Corpuscular Volume 100.8 fL (81-99); Platelet Count 128 K/mm3 (150-450); RBC Distribution Width CV 13.2 % (11.6-14.6); RBC Distribution Width SD 48.6 fl (35.1-43.9); Red Blood Count 2.54 M/mm3 (4.2-5.4); White Blood Count 7.1 K/mm3 (4.4-11.0)
--- NOTE | 2019-10-08 14:17 | NURSING ---
Pt c/o of headache that is a 10 when sitting up and 6 when laying down. Pt states that she has had migraines in the past and this reminds her of what she used to experience. Pt has helping her to bathroom d/t feeling slightly dizzy. Denies any other symptoms visually other than a brief period of blurred vision when standing at the sink. Pt assessment is WNL. This nurse will discuss these symptoms with Lorenza Larson, CORPORATE DIRECTOR
--- NOTE | 2019-10-08 17:43 | PCM.PN.OB ---
Patient Problems: Active and Suspected Problems (Last Updated 10/05/19 @ 04:38 by Emmie Benjamin MD) 36 weeks gestation of (Acute) premature rupture of membranes (Acute) Subjective: This is a late entry for today at 1100 LTCS pain moderately well controlled, c/o RAWLS since midnight, rates 6/10; worse when sitting/standing; has taken Tylenol, Motrin, and Oxycodone without relief; tolerating diet, passing flatus; denies heavy lochia; infants bottle feeding well; spouse bedside and supportive; spouse and patient state unable to sleep r/t what sounds like intermittent construction noises on floor above unit, hoping to be discharged home today Objective: Vitals: T=65.8, HR = 68, R=16, WU=800/88 Breasts soft, pt wearing bra to suppress Fundus firm, midline, u/1, lochia small LTCS dressing C/D/I - Physical Exam Vitals/I&O's: Vital Signs Temp Pulse Resp BP Pulse Ox 98.5 F 68 16 134/87 H 99 10/08/19 13:05 10/08/19 13:05 10/08/19 13:05 10/08/19 13:05 10/08/19 07:57 Oxygen Delivery Method Room Air Weight: 210 lb 2 oz Body Mass Index (BMI) 33.9 Intake and Output for Last 24 Hours 10/06/19 10/07/19 10/08/19 23:59 23:59 23:59 Intake Total 861.67 / 861.67 960.42 / 960.42 Output Total 800 / 800 475 / 475 Balance 61.67 / 61.67 485.42 / 485.42 General: Alert, Oriented x3, Cooperative HEENT: PERRLA, EOMI Oral: Moist Mucosa Neck: Supple Lungs: Clear to auscultation, Normal air movement Cardiovascular: Regular rate, Regular Rhythm Abdomen: Bowel Sounds Present, Soft, Non Tender, Passing Flatus Extremities: Edema - 1+ non pitting bilateral pedal Skin: No rashes Musculoskeletal: No Tenderness to Palpation of Joints or Extremities Neurological: Cranial nerves II-XII grossly intact, Deep Tendon Reflexes 2+/4 and Symmetrical, Neuro grossly intact Psych/Mental Status: Normal Affect, Appropriate, Alert and oriented to time, place, person, mood and affect Laboratory Results 10/08/19 13:25: WBC 7.1, RBC 2.54 L, Hgb 8.3 L, Hct 25.6 L, MCV 100.8 H, MCH 32.7 H, MCHC 32.4, RDW Std Deviation 48.6 H, RDW Coeff of [place] 13.2, Plt Count 128 L, MPV 11.0 Current Medications Acetaminophen (Tylenol) 1,000 mg PO Q8H PRN PRN Reason: Pain Score 1-3/10 Last Admin: 10/08/19 11:58 Dose: 1,000 mg Documented by: Bisacodyl (Dulcolax) 10 mg RECTAL UD PRN PRN Reason: If no BM Enoxaparin Sodium (Lovenox) 40 mg SC DAILY [facility] Last Admin: 10/08/19 10:15 Dose: 40 mg Documented by: Ferrous Sulfate (Ferrous Sulfate) 325 mg PO 1200,1700 [facility] Last Admin: 10/08/19 14:13 Dose: Not Given Documented by: Hydrocortisone (Hytone) 1 applic TOPICAL TID PRN PRN; Protocol PRN Reason: Discomfort Naloxone HCl 4 mg/ Dextrose 504 mls @ 0 mls/hr IV .Q0M PRN; Protocol PRN Reason: Respiratory depression Ibuprofen (Motrin) 600 mg PO Q6H PRN PRN PRN Reason: Pain Score 1-3/10 Last Admin: 10/08/19 16:10 Dose: 600 mg Documented by: Lactobacillus Acidophilus (Acidophilus) 1 tablet PO DAILY [facility] Last Admin: 10/08/19 10:15 Dose: 1 tablet Documented by: Methylergonovine Maleate (Methergine) 0.2 mg IM X1 PRN PRN Reason: Uterine Atony Naloxone HCl (Narcan) 0.02 mg IV Q1M PRN PRN Reason: RR <10 and pt unresponsive Ondansetron HCl (Zofran) 4 mg IV Q4H PRN PRN PRN Reason: Nausea Last Admin: 10/07/19 14:00 Dose: 4 mg Documented by: Oxycodone HCl (Oxyir) 5 - 10 mg PO Q4H PRN PRN PRN Reason: Pain Score 4-10/10 Last Admin: 10/08/19 10:26 Dose: 5 mg Documented by: Multivit/Folic Acid/Iron (Prenatabs Fa) 1 tablet PO DAILY@1200 [facility] Last Admin: 10/08/19 14:14 Dose: Not Given Documented by: Prochlorperazine Edisylate (Compazine Iv) 10 mg IV Q6H PRN PRN PRN Reason: NAUSEA Senna/Docusate Sodium (Senokot-S, Corrina-Colace) 0 tablet PO DAILY PRN PRN Reason: Constipation Last Admin: 10/08/19 08:58 Dose: 2 tablet Documented by: Simethicone (Mylicon) 80 mg PO PCHS PRN PRN Reason: Indigestion/stomach pain Last Admin: 10/07/19 13:59 Dose: 80 mg Documented by: Sodium Chloride () 5 - 15 ml IV UD PRN PRN Reason: SALINE FLUSH Last Admin: 10/08/19 02:20 Dose: 10 ml Documented by: Medical Necessity - Tobacco Use Smoking Status: Light Smoker (<10/day) Assessment/Plan All Active Problems (Last Updated 10/05/19 @ 04:38 by Emmie Benajmin MD) 36 weeks gestation of (Acute) premature rupture of membranes (Acute) Assessment: 29yo G3 now [id number] delivered via primary c/section (twins) at 36w4d gestation by L=10w3d US Postop/ day #3, normal involution, stable post op r/t LTCS Headache Anemia improving Plan: Anesthesia consult for possible spinal RAWLS Fioricet PO Continue routine care Discharge home this evening if RAWLS resolved; will write for Ferrous sulfate supplementation RTO 2 weeks for LTCS scar check, 6 weeks for PP checkup
[2019-10-08] MEDS: Acetaminophen/Butalbital/Caffe 1 Tablet PO (17:45)
[2019-10-08] MEDS: Ferrous Sulfate 325 MG Tablet PO (17:49)
--- NOTE | 2019-10-08 18:07 | DCINST_ITS ---
Discharge Diet: No Restrictions Discharge Activity: Return to Normal Activity, May Drive, May not drive while taking narcotic pain medications., May Shower Return to work on:: 11/17/19 - After checkup May resume sexual activity in: 6-8 weeks - After checkup Weight Bearing Status: Weight bearing as tolerated Lifting Restrictions: Nothing heavier than the babies for two weeks Additional Activity Instructions:: Minimize cooking, cleaning, shopping or long car rides/drives for two weeks; try to get at least 8 hours sleep in 24 hours - sleep when the babies sleep Call your doctor if your incision/area has: Continuous Slow Oozing, Sudden Increased Bleeding, Increased Pain/ Swelling, Increased Redness, Foul Smelling Discharge, Swelling at the incision site Call your doctor if you observe: Fever of 101 or Higher, Coldness, Increased Pain, Inability to urinate, Inability to have a bowel movement, Using more than one pad per hour, Shortness of breath, Dizziness, Fainting spells, Chest pain, Increased palpitations (irregular heartbeat), Calf discomfort Suture Line Care: Avoid Pulling/Pushing Remove Dressing in (days):: 7 Cleanse incision/area with: Soap & Water Additional Instructions: If you experience any of the following, contact your healthcare provider. * Bleeding that soaks a pad every hour for 2 hours * Fever 100.4 or higher * Unrelieved incision or abdominal pain * Swelling, redness, discharge or bleeding from your incision or episiotomy site * Your incision begins to separate * Problems urinating (including inability to urinate or burning while urinating). * Visual changes * Severe headache * Flu-like symptoms * Pain or redness in one of both of your breasts * Pain, warmth, tenderness or swelling in your legs, especially the calf area * Frequent nausea and vomiting * Symptoms of depression or anxiety If you experience any of the following, call 911 or go to the nearest Emergency Room. * Chest pain * Problems breathing * Seizure activity * Partial or complete paralysis of a body part, slurred speech, weakness or drooping of the face, or a sudden inability to walk or hold your balance Allergies/Adverse Reactions: Allergies doxycycline Adverse Reaction (Verified 10/05/19 02:55) Nausea/Vom/Diarrhea Medications to take at Discharge L.acidoph,Paracasei, B.lactis [Probiotic] 1 ea PO DAILY 09/08/19 Icl777/Iron/l-Mefol/Omega3/Dha [ Plus-Dha Combo Pack] 1 tab PO DAILY 09/08/19 Valacyclovir HCl [Valtrex] 1,000 mg PO DAILY 09/08/19 Iron Chews 45 mg PO DAILY 10/05/19 Butalb/Acetaminophen/Caffeine [Fioricet 50-300-40 mg Capsule] 1 ea PO 4X/DAY PRN PRN 7 Days #10 cap 10/08/19 Oxycodone [Oxyfast] 5 mg PO Q4H PRN PRN 7 Days #10 ml 10/08/19 The following prescriptions were given: Butalb/Acetaminophen/Caffeine [Fioricet 50-300-40 mg Capsule] 1 ea PO 4X/DAY PRN PRN 7 Days #10 cap PRN Reason: Headache Transmission Status: Received by [facility] Oxycodone [Oxyfast] 5 mg PO Q4H PRN PRN 7 Days #10 ml PRN Reason: Pain Score 6-10/10 Transmission Status: Received by [facility] Follow-Up: Call to make an appointment with your doctor for an incision check in 1-2 weeks. You will also need a 6 week post- follow up appointment. Test results from this visit will be discussed in further detail at your follow- up appointment, if applicable. Please Follow Up With: Emmie Benjamin MD When: 2 weeks for incision check; 6 weeks for pospartum checkup Primary Care Physician: Care Physician,No Primary [Primary Care Provider] -
--- NOTE | 2019-10-08 18:17 | PCM.DC.SUM ---
Discharge Date and Diagnosis - Problem List Patient Problems: Active and Suspected Problems (Last Updated 10/05/19 @ 04:38 by Emmie Benjamin MD) 36 weeks gestation of (Acute) premature rupture of membranes (Acute) Date of Admission: 10/05/19 - Primary Discharge Diagnosis Active and Suspected Problems (Last Updated 10/05/19 @ 04:38 by Emmie Benjamin MD) 36 weeks gestation of (Acute) premature rupture of membranes (Acute) Hospital Course and Treatment Summary of Care Provided: The patient is a 29 year old F [] Patient Problems: Active and Suspected Problems (Last Updated 10/05/19 @ 04:38 by Emmie Benjamin MD) 36 weeks gestation of (Acute) premature rupture of membranes (Acute) - Physical Exam Vitals/I&O's: Vital Signs Temp Pulse Resp BP Pulse Ox 98.5 F 68 16 134/87 H 99 10/08/19 13:05 10/08/19 13:05 10/08/19 13:05 10/08/19 13:05 10/08/19 07:57 Oxygen Delivery Method Room Air Weight: 210 lb 2 oz Body Mass Index (BMI) 33.9 Intake and Output for Last 24 Hours 10/06/19 10/07/19 10/08/19 23:59 23:59 23:59 Intake Total 861.67 / 861.67 960.42 / 960.42 Output Total 800 / 800 475 / 475 Balance 61.67 / 61.67 485.42 / 485.42 General: Alert, Oriented x3, Cooperative HEENT: PERRLA, EOMI Oral: Moist Mucosa Neck: Supple Lungs: Clear to auscultation, Normal air movement Cardiovascular: Regular rate, Regular Rhythm Abdomen: Bowel Sounds Present, Soft, Non Tender, Passing Flatus Extremities: Capillary Refill Less than 3 Seconds, No Calf Tenderness Skin: No rashes Musculoskeletal: No Tenderness to Palpation of Joints or Extremities Neurological: Cranial nerves II-XII grossly intact, Deep Tendon Reflexes 2+/4 and Symmetrical, Neuro grossly intact Psych/Mental Status: Normal Affect, Appropriate Laboratory Results 10/08/19 13:25: WBC 7.1, RBC 2.54 L, Hgb 8.3 L, Hct 25.6 L, MCV 100.8 H, MCH 32.7 H, MCHC 32.4, RDW Std Deviation 48.6 H, RDW Coeff of [place] 13.2, Plt Count 128 L, MPV 11.0 Current Medications Acetaminophen (Tylenol) 1,000 mg PO Q8H PRN PRN Reason: Pain Score 1-3/10 Last Admin: 10/08/19 11:58 Dose: 1,000 mg Documented by: Bisacodyl (Dulcolax) 10 mg RECTAL UD PRN PRN Reason: If no BM Enoxaparin Sodium (Lovenox) 40 mg SC DAILY [facility] Last Admin: 10/08/19 10:15 Dose: 40 mg Documented by: Ferrous Sulfate (Ferrous Sulfate) 325 mg PO 1200,1700 [facility] Last Admin: 10/08/19 17:49 Dose: 325 mg Documented by: Hydrocortisone (Hytone) 1 applic TOPICAL TID PRN PRN; Protocol PRN Reason: Discomfort Naloxone HCl 4 mg/ Dextrose 504 mls @ 0 mls/hr IV .Q0M PRN; Protocol PRN Reason: Respiratory depression Ibuprofen (Motrin) 600 mg PO Q6H PRN PRN PRN Reason: Pain Score 1-3/10 Last Admin: 10/08/19 16:10 Dose: 600 mg Documented by: Lactobacillus Acidophilus (Acidophilus) 1 tablet PO DAILY [facility] Last Admin: 10/08/19 10:15 Dose: 1 tablet Documented by: Methylergonovine Maleate (Methergine) 0.2 mg IM X1 PRN PRN Reason: Uterine Atony Naloxone HCl (Narcan) 0.02 mg IV Q1M PRN PRN Reason: RR <10 and pt unresponsive Ondansetron HCl (Zofran) 4 mg IV Q4H PRN PRN PRN Reason: Nausea Last Admin: 10/07/19 14:00 Dose: 4 mg Documented by: Oxycodone HCl (Oxyir) 5 - 10 mg PO Q4H PRN PRN PRN Reason: Pain Score 4-10/10 Last Admin: 10/08/19 10:26 Dose: 5 mg Documented by: Multivit/Folic Acid/Iron (Prenatabs Fa) 1 tablet PO DAILY@1200 [facility] Last Admin: 10/08/19 14:14 Dose: Not Given Documented by: Prochlorperazine Edisylate (Compazine Iv) 10 mg IV Q6H PRN PRN PRN Reason: NAUSEA Senna/Docusate Sodium (Senokot-S, Corrina-Colace) 0 tablet PO DAILY PRN PRN Reason: Constipation Last Admin: 10/08/19 08:58 Dose: 2 tablet Documented by: Simethicone (Mylicon) 80 mg PO PCHS PRN PRN Reason: Indigestion/stomach pain Last Admin: 10/07/19 13:59 Dose: 80 mg Documented by: Sodium Chloride () 5 - 15 ml IV UD PRN PRN Reason: SALINE FLUSH Last Admin: 10/08/19 02:20 Dose: 10 ml Documented by: Discharge Diet: No Restrictions Discharge Activity: Return to Normal Activity, May Drive, May not drive while taking narcotic pain medications., May Shower Return to work on:: 11/17/19 - After checkup May resume sexual activity in: 6-8 weeks - After checkup Weight Bearing Status: Weight bearing as tolerated Additional Activity Instructions:: Minimize cooking, cleaning, shopping or long car rides/drives for two weeks; try to get at least 8 hours sleep in 24 hours - sleep when the babies sleep Call your doctor if your incision/area has: Continuous Slow Oozing, Sudden Increased Bleeding, Increased Pain/ Swelling, Increased Redness, Foul Smelling Discharge, Swelling at the incision site Call your doctor if you observe: Fever of 101 or Higher, Coldness, Increased Pain, Inability to urinate, Inability to have a bowel movement, Using more than one pad per hour, Shortness of breath, Dizziness, Fainting spells, Chest pain, Increased palpitations (irregular heartbeat), Calf discomfort Suture Line Care: Avoid Pulling/Pushing Remove Dressing in (days):: 7 Cleanse incision/area with: Soap & Water Home Medications: Medications to take at Discharge L.acidoph,Paracasei, B.lactis [Probiotic] 1 ea PO DAILY 09/08/19 Nfo732/Iron/l-Mefol/Omega3/Dha [ Plus-Dha Combo Pack] 1 tab PO DAILY 09/08/19 Valacyclovir HCl [Valtrex] 1,000 mg PO DAILY 09/08/19 Iron Chews 45 mg PO DAILY 10/05/19 Butalb/Acetaminophen/Caffeine [Fioricet 50-300-40 mg Capsule] 1 ea PO 4X/DAY PRN PRN 7 Days #10 cap 10/08/19 Oxycodone [Oxyfast] 5 mg PO Q4H PRN PRN 7 Days #10 ml 10/08/19 Following Prescrptions Were Given to Patient: Butalb/Acetaminophen/Caffeine [Fioricet 50-300-40 mg Capsule] 1 ea PO 4X/DAY PRN PRN 7 Days #10 cap PRN Reason: Headache Transmission Status: Received by [facility] Oxycodone [Oxyfast] 5 mg PO Q4H PRN PRN 7 Days #10 ml PRN Reason: Pain Score 6-1010 Transmission Status: Received by [facility] Primary Care Physician: Care Physician,No Primary [Primary Care Provider] - Please Follow Up With: Emime Benjamin MD When: 2 weeks for incision check; 6 weeks for pospartum checkup Medical Necessity - Tobacco Use Smoking Status: Light Smoker (<10/day) Meaningful Use Info Meaningful Use Diagnoses (Choose all that apply): None applicable
[2019-10-08 18:26] VITALS: BP 131/79; PULSE 68; RESP 16; TEMP 37.1
--- NOTE | 2019-10-08 20:53 | PCM.PN.BLA ---
Progress Note This is a late entry for today at 1900 S: RAWLS resolved; denies lightheadedness, dizziness, nausea or SOB; strongly desires discharge O: AVSS PERRLA Skin color normal No apparent distress A&O x 5, normal affect and appropriate Anesthesia consult negative for spinal RAWLS A: Assessment: 29yo G3 now [id number] delivered via primary c/section (twins) at 36w4d gestation by L=10w3d US Postop/ day #3, normal involution, stable post op r/t LTCS Headache resolved Anemia improving Plan: Discharge teaching completed Discharge home this evening Rx sent for Fioricet, Oxycodone, Ferrous Sulfate RTO 2 weeks for LTCS imcision check, 6 weeks for PP checkup STROKE Vital Signs/Narrative: Vital Signs Temp Pulse Resp BP 10/08/19 18:26 98.8 F 68 16 131/79 H
[2019-10-10 09:30] LABS: Pathology Specimen OB SEE PATHOLOGY REPORT
== END 2019-10-08 20:20 | disposition home or self-care (01) | DRG 787 ==
LOC: WPOUT 03:01 → WP 03:01
PROVIDERS: Advanced Practice Midwife; Admitting Provider Obstetrics & Gynecology; Visit Provider Obstetrics & Gynecology
DX: O42.013 Preterm premature rupture of membranes, onset of labor within 24 hours of rupture, third trimester (principal); O90.81 Anemia of the puerperium; D62 Acute posthemorrhagic anemia; O40.3XX1 Polyhydramnios, third trimester, fetus 1; O32.2XX2 Maternal care for transverse and oblique lie, fetus 2; O30.043 Twin pregnancy, dichorionic/diamniotic, third trimester; O76 Abnormality in fetal heart rate and rhythm complicating labor and delivery; O99.334 Smoking (tobacco) complicating childbirth; F17.200 Nicotine dependence, unspecified, uncomplicated; Z3A.36 36 weeks gestation of pregnancy; Z37.2 Twins, both liveborn
CPT/HCPCS: 59025; 59050; 84112; 85025; 85027; 86850; 86900; 86901; 88307; 99218; 99251; J7120; A4216; G0378; G0463; J2405

== ENCOUNTER → 2020-07-02 | Outpatient (CLI) | payer OTHER, SELFPAY ==
[2019-10-05 02:55] VITALS: BMI 33.9
[2020-07-02 11:50] LABS: Follicle Stimulating Hormone 4.8 mIU/mL; Free T3 2.6 pg/mL (2.18-3.98); Glucose 101 mg/dL (74-106); Luteinizing Hormone 5.9 mIU/mL; Prolactin 22.4 ng/mL; Thyroid Stim Hormone (TSH) 0.65 uIU/mL (0.358-3.74)
[2020-07-04 09:42] LABS: Insulin 6.3 mU/L (2.6-37.6); T3 Total - Triiodothyronine 1.03 ng/mL (0.6-1.81); Vitamin D,25 Hydroxy 32.6 ng/mL
[2020-07-08 07:47] LABS: Androstenedione 131 ng/dL (41-262)
== END | disposition home or self-care (01) ==
LOC: WOBLAB 08:35
PROVIDERS: Visit Provider Obstetrics & Gynecology
DX: E28.2 Polycystic ovarian syndrome (principal); N92.5 Other specified irregular menstruation
CPT/HCPCS: 36415; 82157; 82306; 82533; 82627; 82670; 82947; 83001; 83002; 83525; 84146; 84270; 84403; 84439; 84443; 84480; 84481; 82626

== ENCOUNTER → 2021-09-12 08:51 | Outpatient (CLI) | payer OTHER, SELFPAY ==
--- NOTE | 2021-09-12 08:54 | BI_ITS ---
MAMMOGRAPHY - BILATERAL DIAGNOSTIC REASON FOR EXAM: Female, 31 years old. Right breast lump. PERTINENT HISTORY: Non-contributory. TECHNIQUE: Digital bilateral breast iris (3D mammographic acquisition) in the CC and MLO projections. 2-D mediolateral oblique (MLO) and craniocaudad (CC) views of both breasts were obtained. CAD: Full Field Digital Mammography with Computer Added Detection was performed. COMPARISON: None. Baseline examination. FINDINGS: Breast Composition: The breasts are heterogeneously dense, which may obscure small masses. There are no dominant masses or suspicious calcifications. No other significant abnormalities are identified. BI/DIAG MAMM W/CAD, BILAT IMPRESSION: Negative diagnostic mammogram. With the patient''s history of a palpable lump in the upper outer quadrant of the right breast, correlation with ultrasound is recommended. ASSESSMENT CATEGORY: BIRADS Category 0: Incomplete. Need additional imaging evaluation. A letter regarding these results will be sent to the patient by the facility within 30 days. Approximately 10% of breast cancers are not detected by mammography. A normal mammogram should not delay biopsy of a clinically suspicious abnormality. Electronically Signed: Abner Dwyer MD at 10:46 EST , Service support ,
--- NOTE | 2021-09-12 08:55 | US_ITS ---
STUDY: ULTRASOUND BREAST - RIGHT REASON FOR EXAM: Female, 31 years old. Palpable lump in the right breast. TECHNIQUE: Axial and longitudinal images of the RIGHT breast were performed with a high resolution ultrasound transducer. # OF IMAGES: 17 COMPARISON: Comparison is made with prior mammogram done earlier today. FINDINGS: RIGHT Breast: The lateral midportion of the right breast was examined by ultrasound. There is dense fibroglandular tissue. No sonographic abnormality is seen. US/Breast Limited Unilateral IMPRESSION: No sonographic abnormality is seen. ASSESSMENT CATEGORY: BIRADS Category 1: Negative. A letter regarding these results will be sent to the patient by the facility within 30 days. Electronically Signed: Abner Dwyer MD at 10:11 EST , Service support ,
== END ==
PROVIDERS: Referring Provider Obstetrics & Gynecology; Visit Provider Obstetrics & Gynecology
DX: N63.11 Unspecified lump in the right breast, upper outer quadrant (principal)
CPT/HCPCS: 76642; 77062; 77066; G0279